=== PATIENT | female | born 2000 | race Caucasian/White ===

== ENCOUNTER 2023-03-18 09:59 | Emergency (ER) | payer OTHER ==
[~2023-03-18] VITALS: Ht 167.6 cm; Wt 62.2 kg
[2023-03-18] MEDS ORDERED: MED REC IN PROGRESS XX SCH (11:30)
[2023-03-18] MEDS ORDERED: PARA1IUD IU (12:07)
[2023-03-18] MEDS ORDERED: HOME MED LIST COMPLETE! XX SCH (12:35)
[2023-03-18 14:37] VITALS: BP 115/68; TEMP 98.4; O2SAT 99
== END 2023-03-18 14:47 | disposition home or self-care (01) ==
LOC: M ED 09:59
DX: F32.A Depression, unspecified (principal); F41.9 Anxiety disorder, unspecified; F90.9 Attention-deficit hyperactivity disorder, unspecified type; F17.200 Nicotine dependence, unspecified, uncomplicated; F17.290 Nicotine dependence, other tobacco product, uncomplicated